=== PATIENT | female | born 1990 | race American Indian/Alaskan Native ===

== ENCOUNTER 2018-12-23 19:56 | Emergency (ER) | payer SELFPAY ==
[2018-12-23 20:08] VITALS: BP 117/85
== END 2018-12-23 21:00 | disposition left against medical advice (07) ==
LOC: ED 19:56
DX: N93.9 Abnormal uterine and vaginal bleeding, unspecified (principal); Z53.21 Procedure and treatment not carried out due to patient leaving prior to being seen by health care provider